=== PATIENT | male | born 1965 | race Caucasian/White ===

== ENCOUNTER 2017-11-30 21:36 | Emergency (ER) | payer SELFPAY ==
--- NOTE | 2017-11-30 22:25 | EDM.PDOC ---
ED HPI GENERAL MEDICAL PROBLEM - General Chief Complaint: ENT Problem Stated Complaint: TOOTHACHE Time Seen by Provider: 11/30/17 22:21 - History of Present Illness INITIAL COMMENTS - FREE TEXT/NARRATIVE: HISTORY AND PHYSICAL: History of present illness: Patient 52-year-old male presents with concern of left lower molar pain worse over last several days he denies fever chills nausea vomiting Review of systems: As per history of present illness and below otherwise all systems reviewed and negative. Past medical history: As per history of present illness and as reviewed below otherwise noncontributory. Surgical history: As per history of present illness and as reviewed below otherwise noncontributory. Social history: No reported history of drug or alcohol abuse. Family history: As per history of present illness and as reviewed below otherwise noncontributory. Physical exam: HEENT: Atraumatic, normocephalic, pupils reactive, negative for conjunctival pallor or scleral icterus, mucous membranes moist, throat clear, neck supple, nontender, trachea midline. Patient has tenderness in the region of the left lower molars Lungs: Clear to auscultation, breath sounds equal bilaterally, chest nontender. Heart: S1S2, regular, negative for clicks, rubs, or JVD. Abdomen: Soft, nondistended, nontender. Negative for masses or hepatosplenomegaly. Negative for costovertebral tenderness. Pelvis: Stable nontender. Genitourinary: Deferred. Rectal: Deferred. Extremities: Atraumatic, negative for cords or calf pain. Neurovascular unremarkable. Neuro: Awake, alert, oriented. Cranial nerves II through XII unremarkable. Cerebellum unremarkable. Motor and sensory unremarkable throughout. Exam nonfocal. Diagnostics: None Therapeutics: Dental balls Impression: #1 dentalgia number to rule out dental abscess Definitive disposition and diagnosis as appropriate pending reevaluation and review of above. 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 ED EXAM, GENERAL - Physical Exam Exam: See Below (The dictation) Course - Vital Signs Last Recorded V/S: Last Vital Signs Temp 36.5 C 11/30/17 21:44 Pulse 79 11/30/17 21:44 Resp 12 11/30/17 21:44 BP 156/96 H 11/30/17 21:44 Pulse Ox 94 L 11/30/17 21:44 Departure - Departure Time of Disposition: 22:24 Disposition: Home, Self-Care 01 Condition: Good Clinical Impression: Dentalgia, Dental abscess - Discharge Information Referrals: PCP,None [Primary Care Provider] - Additional Instructions: The following information is given to patients seen in the emergency department who are being discharged to home. This information is to outline your options for follow-up care. We provide all patients seen in our emergency department with a follow-up referral. The need for follow-up, as well as the timing and circumstances, are variable depending upon the specifics of your emergency department visit. If you don't have a primary care physician on staff, we will provide you with a referral. We always advise you to contact your personal physician following an emergency department visit to inform them of the circumstance of the visit and for follow-up with them and/or the need for any referrals to a consulting specialist. The emergency department will also refer you to a specialist when appropriate. This referral assures that you have the opportunity for followup care with a specialist. All of these measure are taken in an effort to provide you with optimal care, which includes your followup. Under all circumstances we always encourage you to contact your private physician who remains a resource for coordinating your care. When calling for followup care, please make the office aware that this follow-up is from your recent emergency room visit. If for any reason you are refused follow-up, please contact the [facility] emergency department at and asked to speak to the emergency department charge nurse. Augmentin proximal and as prescribed follow-up dentist as discussed dental balls as directed return as needed as discussed
[2017-11-30] MEDS ORDERED: Lidocaine 2% Viscous Solution 15 ML Cup PO ONE (22:28)
[2017-11-30] MEDS ORDERED: Benzocaine 20% Topical Spray UD MUCMEM ONE (22:28)
== END 2017-11-30 22:57 | disposition home or self-care (01) ==
LOC: MW.ED 21:36
DX: K04.7 Periapical abscess without sinus (principal); I10 Essential (primary) hypertension; Z79.899 Other long term (current) drug therapy
CPT/HCPCS: 99282; A9270

== ENCOUNTER 2019-06-17 18:08 | Emergency (ER) | payer SELFPAY ==
--- NOTE | 2019-06-17 18:44 | EDM.PDOC ---
ED HPI GENERAL MEDICAL PROBLEM - General Chief Complaint: Lower Extremity Injury/Pain Stated Complaint: PT HURT LT LEG Time Seen by Provider: 06/17/19 18:44 Source of Information: Reports: Patient History Limitations: Reports: No Limitations - History of Present Illness INITIAL COMMENTS - FREE TEXT/NARRATIVE: HISTORY AND PHYSICAL: History of present illness: patient is a 53-year-old male presents to the ED with complaint of left leg pain. 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 Four days ago he used a new deodorant, the following day he starting having pain in the leg. He states it doesn't bother him when until he stands up. He denies injury, fevers, chills. Review of systems: As per history of present illness and below otherwise all systems reviewed and negative. Past medical history: As per history of present illness and as reviewed below otherwise noncontributory. Surgical history: As per history of present illness and as reviewed below otherwise noncontributory. Social history: No reported history of drug or alcohol abuse. Family history: As per history of present illness and as reviewed below otherwise noncontributory. Physical exam: General: Patient sitting comfortably in no acute distress and nontoxic appearing HEENT: Atraumatic, normocephalic, pupils reactive, negative for conjunctival pallor or scleral icterus, mucous membranes moist, throat clear, neck supple, nontender, trachea midline. No meningeal signs. Lungs: Clear to auscultation, breath sounds equal bilaterally, chest nontender. Heart: S1S2, regular, negative for clicks, rubs, or overt murmur. Abdomen: Soft, nondistended, nontender. Negative for masses or hepatosplenomegaly. Negative for costovertebral tenderness. No rigidity, rebound , guarding. Pelvis: Stable nontender. Genitourinary: Deferred. Rectal: Deferred. Skin: skin to the right stump is slightly erythematous and warm to the touch. There is no open skin noted. Extremities: Atraumatic, negative for cords or calf pain. Neurovascular unremarkable. Neuro: Awake, alert, oriented. Cranial nerves II through XII unremarkable. Cerebellum unremarkable. Motor and sensory unremarkable throughout. Exam nonfocal. Notes: Diagnostics: x-ray left tib/fib Therapeutics: Prescriptions: Keflex Tramadol (#12) Impression: Left leg pain, cellulitis Plan: Take antibiotic as instructed. Alternate tylenol and motrin as needed for pain Follow-up with primary care provider Return to ED as needed as discussed Definitive disposition and diagnosis as appropriate pending reevaluation and review of above. Left Lower Stump Pain Score (Numeric/FACES): 0 - Related Data Allergies Allergy/AdvReac Type Severity Reaction Status Date / Time No Known Allergies Allergy Verified 06/17/19 18:30 Home Meds: Home Meds Famotidine [Pepcid] 20 mg PO DAILY 11/30/17 [History] Lisinopril 20 mg PO BID 11/30/17 [History] amLODIPine Besylate [Amlodipine Besylate] 10 mg PO DAILY 11/30/17 [History] cephALEXin [Keflex] 500 mg PO TID 7 Days #21 cap 06/17/19 [Rx] Past Medical History - Past Health History Medical/Surgical History: Denies Medical/Surgical History Cardiovascular History: Reports: Hypertension Musculoskeletal History: Reports: Amputation, Other (See Below) 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 ED EXAM, GENERAL - Physical Exam Exam: See Below (see dictation) Course - Vital Signs Last Recorded V/S: Last Vital Signs Temp 97.7 F 06/17/19 18:24 Pulse 102 H 06/17/19 18:24 Resp 18 06/17/19 18:24 BP 156/87 H 06/17/19 18:24 Pulse Ox 94 L 06/17/19 18:24 Departure - Departure Time of Disposition: 19:18 Disposition: Home, Self-Care 01 Condition: Good Clinical Impression: Cellulitis - Discharge Information Prescriptions: cephALEXin [Keflex] 500 mg PO TID 7 Days #21 cap Instructions: Cellulitis, Adult, [id number] Referrals: PCP,None [Primary Care Provider] - Forms: ED Department Discharge Additional Instructions: The following information is given to patients seen in the emergency department who are being discharged to home. This information is to outline your options for follow-up care. We provide all patients seen in our emergency department with a follow-up referral. The need for follow-up, as well as the timing and circumstances, are variable depending upon the specifics of your emergency department visit. If you don't have a primary care physician on staff, we will provide you with a referral. We always advise you to contact your personal physician following an emergency department visit to inform them of the circumstance of the visit and for follow-up with them and/or the need for any referrals to a consulting specialist. The emergency department will also refer you to a specialist when appropriate. This referral assures that you have the opportunity for follow-up care with a specialist. All of these measure are taken in an effort to provide you with optimal care, which includes your follow-up. Under all circumstances we always encourage you to contact your private physician who remains a resource for coordinating your care. When calling for follow-up care, please make the office aware that this follow-up is from your recent emergency room visit. If for any reason you are refused follow-up, please contact the [facility] Emergency Department at and asked to speak to the emergency department charge nurse. [facility] [address] [place] [address] [id number] [address] [id number] Take antibiotic as instructed. Alternate tylenol and motrin as needed for pain Follow-up with primary care provider Return to ED as needed as discussed
--- NOTE | 2019-06-17 19:05 | CR ---
INDICATION: pain, swelling, and redness x2 days COMPARISON: None. FINDINGS: Two views of the left knee demonstrate postsurgical changes from below the knee amputation. The knee joint is intact without evidence of fracture dislocation. Mild medial compartment joint space narrowing. Osteophyte formation of the patellofemoral compartment. There is no evidence of osseous resorption or destruction. No knee effusion. IMPRESSION: 1. No acute osseous abnormality. 2. Postsurgical changes from [id number] amputation. Dictated by Augusto Galvin MD @ 06/17/2019 7:03:01 PM Dictated by: Augusto Galvin MD @ 06/17/2019 19:03:11 (Electronically Signed)
== END 2019-06-17 19:40 | disposition home or self-care (01) ==
LOC: MW.ED 18:08
DX: L03.116 Cellulitis of left lower limb (principal); I10 Essential (primary) hypertension; Z79.899 Other long term (current) drug therapy; Z90.49 Acquired absence of other specified parts of digestive tract; Z89.512 Acquired absence of left leg below knee
CPT/HCPCS: 73590-26-LT; 73590-LT; 99283; 99283-25